=== PATIENT | female | born 1960 | race Caucasian/White ===

== ENCOUNTER → 2017-02-16 | Outpatient (CLI) | payer BC ==
[~2017-02-16] MED LIST: BENICAR PO; CHOL2000 PO; EFFSR150 PO; GLC/500 PO; OMEG10007 PO; PANT40TA PO; RXC5 PO; TIMO0.2534 OPL; VENL75CA PO; VERA240T20 PO
--- NOTE | 2017-02-17 12:47 | MAMMOGRAPHY REPORT ---
BILATERAL DIGITAL SCREENING MAMMOGRAM TOMOSYNTHESIS WITH CAD: 02/16/2017 CLINICAL HISTORY: Routine screening examination. TECHNIQUE: Breast tomosynthesis in addition to standard 2D mammography was performed. Current study was also evaluated with a Computer Aided Detection (CAD) system. COMPARISON: Comparison is made to exams dated: 02/12/2016 mammogram, 12/22/2013 mammogram, 12/25/2010 mammogram, 12/30/2011 mammogram, 12/20/2009 mammogram - [facility], and 09/22/2008. BREAST COMPOSITION: There are scattered areas of fibroglandular density in both breasts. FINDINGS: There are scattered stable benign-appearing microcalcifications throughout the breasts. S table nodularity in the left breast. No new suspicious mass, architectural distortion or cluster of microcalcifications is seen. IMPRESSION: ACR BI-RADS CATEGORY 1: NEGATIVE There is no mammographic evidence of malignancy. A 1 year screening mammogram is recommended. The p atient will receive written notification of the results. Approximately 10% of breast cancers are not detected with mammography. A negative mammographic repor t should not delay biopsy if a clinically suggestive mass is present. Gabrielle Bradshaw M.D. ay/:02/16/2017 16:57:15 Tie Tape Machine Operator: Mattie FISH(My)(M), [facility] letter sent: Normal 1/2 BI-RADS Code: ACR BI-RADS Category 1: Negative
== END | disposition home or self-care (01) ==
LOC: C.MAMM 10:43
PROVIDERS: ATTEND Family Medicine
DX: Z12.31 Encounter for screening mammogram for malignant neoplasm of breast (principal)

== ENCOUNTER → 2017-04-22 | Outpatient (CLI) | payer OTHER | END | disposition home or self-care (01) | LOC: C.LAB 19:57 | DX: Z02.83 Encounter for blood-alcohol and blood-drug test (principal) ==

== ENCOUNTER → 2018-02-18 | Outpatient (CLI) | payer OTHER ==
--- NOTE | 2018-02-18 15:09 | MAMMOGRAPHY REPORT ---
BILATERAL DIGITAL SCREENING MAMMOGRAM TOMOSYNTHESIS WITH CAD: 02/18/2018 CLINICAL HISTORY: Routine screening. Patient has no complaints. TECHNIQUE: Breast tomosynthesis in addition to standard 2D mammography was performed. Current study was also evaluated with a Computer Aided Detection (CAD) system. COMPARISON: Comparison is made to exams dated: 02/16/2017 mammogram, 02/12/2016 mammogram, 12/22/2013 m ammogram, 12/30/2011 mammogram, 12/25/2010 mammogram, and 12/20/2009 mammogram - [facility] enter. BREAST COMPOSITION: There are scattered areas of fibroglandular density in both breasts. FINDINGS: There is a small cluster of calcifications within the left central/6:00 breast, for which s pot magnification views are recommended for further evaluation. The remainder of both breasts are stable compared to prior exams, without suspicious masses, calcific ations, or areas of architectural distortion noted. Other scattered bilateral benign-appearing calci fications are not significantly changed. IMPRESSION: ACR BI-RADS CATEGORY 0: INCOMPLETE EVALUATION: NEED ADDITIONAL IMAGING EVALUATION Left breast calcifications, for which additional imaging evaluation is recommended. The patient will be called to schedule an appointment. Approximately 10% of breast cancers are not detected with mammography. A negative mammographic report should not delay biopsy if a clinically suggestive mass is present. Sarita Sherwood M.D. /:02/18/2018 14:40:31 Tear Down Man: Yoon FISH(My)(Edyta), [facility] letter sent: Addl Imaging 0 BI-RADS Code: ACR BI-RADS Category 0: Incomplete Evaluation: Need Additional Imaging Evaluation
== END | disposition home or self-care (01) ==
LOC: C.MAMM 10:53
PROVIDERS: ATTEND Obstetrics & Gynecology
DX: Z12.31 Encounter for screening mammogram for malignant neoplasm of breast (principal); R92.0 Mammographic microcalcification found on diagnostic imaging of breast

== ENCOUNTER → 2018-03-01 | Outpatient (CLI) | payer OTHER ==
--- NOTE | 2018-03-02 07:48 | MAMMOGRAPHY REPORT ---
UNILATERAL LEFT DIGITAL DIAGNOSTIC MAMMOGRAM: 03/01/2018 CLINICAL HISTORY: 57-year-old woman called back from screening mammography for left breast calcificat ions. TECHNIQUE: Spot magnification left CC and ML views were obtained. COMPARISON: Comparison is made to exams dated: 02/18/2018 mammogram, 02/16/2017 mammogram, 02/12/2016 m ammogram, 12/22/2013 mammogram, 12/30/2011 mammogram, and 12/25/2010 mammogram - [facility] enter. BREAST COMPOSITION: There are scattered areas of fibroglandular density in the left breast. FINDINGS: There is a 5 mm loose grouping of punctate and amorphous microcalcifications with associat ed focal asymmetry in the 6:00 versus lower inner middle one third of the left breast, which in retro spect may have been present in 2017 but not identified on prior mammograms and is therefore indetermi po. Although this could represent fibrocystic change, none of the calcifications demonstrate defin itive layering on the spot magnification ML view to confirm benign milk of calcium. Therefore, defin itive characterization with stereotactic guided biopsy is recommended. IMPRESSION: ACR BI-RADS CATEGORY 4: SUSPICIOUS Left breast stereotactic guided biopsy is recommended for a 5 mm loose grouping of punctate and amorp hous microcalcifications with associated focal asymmetry in the 6:00/lower inner middle one third of the left breast. These results and recommendations were discussed with the patient at the time of the exam. She tenta tively scheduled the left breast stereotactic biopsy prior to leaving our department. Approximately 10% of breast cancers are not detected with mammography. A negative mammographic report should not delay biopsy if a clinically suggestive mass is present. Gabrielle Bradshaw M.D. ay/:03/01/2018 11:22:56 Extrusion Process Operator: Clare FISH(My)(Edyta), [facility] letter sent: Abnormal 4/5 BI-RADS Code: ACR BI-RADS Category 4: Suspicious
== END | disposition home or self-care (01) ==
LOC: C.MAMM 08:35
PROVIDERS: ATTEND Obstetrics & Gynecology
DX: R92.0 Mammographic microcalcification found on diagnostic imaging of breast (principal)

== ENCOUNTER → 2018-03-05 | Outpatient (CLI) | payer OTHER ==
--- NOTE | 2018-03-05 13:14 | Discharge Instructions ---
Discharge Instructions Procedure Procedure Date: Mar 05, 2018. Reason for visit: Left Calcs. Discharge Discharge Date: Mar 05, 2018. Discharge Diagnosis: status post breast biopsy Instructions Activity Recommendations: Additional Limitations (see below) Return to School/Work: no limitations Recommended Home Diet: No Limitations Provider Instructions: ACTIVITY RECOMMENDATIONS: * No lifting, pushing, pulling or exercising the affected side for three days. RETURN TO SCHOOL/WORK: * You may return to work/school after the procedure, but do not perform any strenuous activities for 24 to 48 hours. MEDICATIONS: * Tylenol (two 325 mg) every four to six hours if needed for mild pain (if not allergic to Tylenol). DIET: * Resume previous diet. SPECIAL CARE INSTRUCTIONS: * Keep biopsy site dry for 24 hours. May shower after 24 hours, but do not soak (bathe) incision. * May remove Tegaderm (plastic patch) tomorrow AFTER showering. * Leave the steri-strips on for one week. Allow the steri-strips to fall off by themselves. If not off after one week, you may remove them. You may place a Bandaid crosswise over the strips, if desired. * Apply ice 10 minutes on and 10 minutes off as needed. * Wear a bra at bedtime to sleep more comfortably for 2-3 days. * Your referring physician should have the results after approximately 5 to 7 business days. * Call for unusual bleeding, fever, drainage, etc or if you have any questions call during normal business hours or after hours call Dr Sherwood, . FOLLOW UP VISIT: Follow-up with Referring Physician as scheduled. Allergies Coded Allergies: Cephalexin (Verified Adverse Reaction, Intermediate, YEAST INFECTION, ) Jose Kaba Recommendations: Call your doctor if: * Temperature above 101 degrees * Pain not relieved by pain medicine ordered * There is increased drainage or redness from any incision * You have any unanswered questions or concerns. Your Doctors Instructions noted above were prepared by provider Sarita Sherwood. Patient Signature Section: Patient Instructions Signature Page Vandana Armas Patient (or Guardian) Signature/Date: I have read and understand the instructions given to me by my caregivers. Caregiver/RN/Doctor Signature/Date: The above-named patient and/or guardian has received patient instructions on this date. + Original Patient Signature Page (only) stays with chart. Please make copy for patient.
--- NOTE | 2018-03-05 15:35 | MAMMOGRAPHY REPORT ---
STEREOTACTIC GUIDED BIOPSY LEFT BREAST: 03/05/2018 CLINICAL HISTORY: Indeterminate calcifications in the left breast at approximately 6:00. PATIENT CONSENT: The procedure, risks, benefits, and alternatives of stereotactic biopsy with clip pl acement were discussed with the patient, and verbal and written consent was obtained. A timeout was performed immediately prior to the procedure. PROCEDURE DESCRIPTION: With stereotactic guidance, aseptic technique, and lidocaine as a local anesth etic (1% lidocaine to anesthetize the skin and 1% lidocaine with epinephrine to anesthetize the deepe r tissues), the calcifications of concern in the left breast at approximately 6:00 with an associated asymmetry were sampled multiple times with a 9-gauge vacuum-assisted biopsy needle (Cell[employer]). T he path of approach was caudocranial. The specimen radiograph demonstrates calcifications to be pres ent in the samples. The samples containing calcifications (labeled "A") were from the samp les without calcifications (labeled "B"). A metallic marker clip was placed at the biopsy site. Thi s was confirmed on postprocedure mammograms. Direct pressure was applied at the biopsy site and hemo stasis was readily achieved. The patient tolerated the procedure without complication. She was give n wound care instructions. COMPARISON: Comparison is made to exams dated: 03/01/2018 mammogram, 02/18/2018 mammogram, 02/16/2017 ma mmogram, 02/12/2016 mammogram, 12/22/2013 mammogram, and 12/30/2011 mammogram - [facility] nter. IMPRESSION: STEREOTACTIC GUIDED BIOPSY Stereotactic biopsy of indeterminate calcifications and an associated asymmetry in the left breast at approximately 6:00, with clip placement. The patient will receive pathology results from her referr ing provider. Sarita Sherwood M.D. /:03/05/2018 13:15:43 Attending Technologist: Lola Spangler RT(R)(M), [facility] Vp Transportation: Clare Alfredo RTRosieR)(M), [facility]
--- NOTE | 2018-03-05 15:39 | MAMMOGRAPHY REPORT ---
UNILATERAL LEFT DIGITAL DIAGNOSTIC MAMMOGRAM: 03/05/2018 CLINICAL HISTORY: Status post left breast stereotactic biopsy. TECHNIQUE: Postprocedural left CC and ML views were obtained. COMPARISON: Comparison is made to exams dated: 02/18/2018 mammogram, 02/16/2017 mammogram, 02/12/2016 m ammogram, 12/22/2013 mammogram, 12/30/2011 mammogram, and 03/01/2018 mammogram - [facility]ter. BREAST COMPOSITION: There are scattered areas of fibroglandular density in the left breast. FINDINGS: A new biopsy marker clip is seen within the left 12:00 breast status post stereotactic biop sy of left 6:00 breast calcifications. There is superior migration of the biopsy marker clip from th e biopsy site by approximately 4.7 cm. A residual calcification is seen at the biopsy site. No sign ificant postbiopsy hematoma is seen. IMPRESSION: POST PROCEDURE IMAGING FOR MARKER PLACEMENT New biopsy marker clip status post left breast stereotactic biopsy. There is superior migration of t he biopsy clip as described above. Pathology results are pending. Approximately 10% of breast cancers are not detected with mammography. A negative mammographic report should not delay biopsy if a clinically suggestive mass is present. Sarita Sherwood M.D. ah/:03/05/2018 13:27:11 Attending Technologist: Lola Spangler RT(R)(M), [facility] Transitional Care Manager: Clare Alfredo RT(R)(M), [facility] BI-RADS Code: Post Procedure Imaging For Marker Placement
== END | disposition home or self-care (01) ==
LOC: C.MAMM 12:37
PROVIDERS: ATTEND Obstetrics & Gynecology
DX: D24.2 Benign neoplasm of left breast (principal); R92.0 Mammographic microcalcification found on diagnostic imaging of breast

== ENCOUNTER 2022-12-08 04:29 | Inpatient (IN) ==
[2022-12-08] MEDS ORDERED: SODIUM CHLORIDE 0.9% 500 ML IV ONE ×3 (04:48→05:33)
--- NOTE | 2022-12-08 05:01 | Emergency Department Note ---
Impression & Plan Closed left humeral fracture, Fall, Acute hyponatremia Admit to orthopedics ED Provider Note NAME: IMTIAZ WATSON AGE: 62 SEX: F ARRIVES VIA: Ambulance INFORMANT: Patient ED PROVIDER(S): Nisa Lugo DO CHIEF COMPLAINT: Fall PLAN: Disposition: Admit to orthopedics Condition: Stable MEDICAL DECISION MAKING: This is a 62-year-old female patient who presents to the emergency department with left arm pain. Patient suffered a fall around 2230 last night. She was unable to get up off of the bathroom floor. She rested there overnight believing that the pain would improve but it did not. EMS was called this morning and she was transported here. X-ray shows significantly displaced left proximal humerus fracture. Patient had no other obvious acute traumatic injuri es. She was hyponatremic with mild elevated total CK. She was treated with IV normal saline solution. The patient did have elevation to her alcohol level. She does admit to drinking alcohol last evening prior to the fall. She was kept NPO. I discussed the case with Dr. Marcano who reviewed the x-rays of the shoulder and agreed to admit the patient to the hospital for further care. Patient was neurologically intact in that left upper extremity. She had good pulses and sensation in the wrist/hand. She declined wanting anything for pain. Triage Nursing notes reviewed and agree with them. Vital Signs: reviewed and remarkable for no significant abnormalities Differential diagnosis: Shoulder dislocation, humeral head fracture, elbow injury ER treatment provided: IV normal saline bolus Cardiac monitoring Twelve-lead EKG Diagnostics interpreted by me: ECG: Sinus tachycardia at [address] segment elevation or signs of ischemia. There is no ectopy. Cardiac Monitoring: Sinus tachycardia at 120 Laboratory studies: See below Imaging studies: As per my interpretation Left arm x-ray: Significantly displaced proximal humeral head fracture Chest x-ray: No obvious pulmonary pathology HPI: 62/F arrives for evaluation of left arm pain. The patient slipped on a wet floor in her bathroom around 10:30 PM last evening. She landed on her left arm after striking a cabinet in the bathroom. She did not strike her head or lose consciousness. The patient was unable to get her self up off of the floor for period of time but then asked her to leave her there because of the pain in her left arm. She laid there with a pillow in a blanket throughout the night believing that the pain would go away but it did not. EMS was called this morning. She denies any neck pain or chest pain. PAST MEDICAL HISTORY:See Below PAST SURGICAL HISTORY:See Below FAMILY HISTORY:See Below SOCIAL HISTORY:See Below HOME MEDICATIONS:See list ALLERGIES:None VITALS:See Below PHYSICAL EXAMINATION: HEENT: Head - normocephalic and atraumatic. Pupils are equal, round, and reactive to light. Extraocular eye muscles are intact and sclera are anicteric. Ears - bilaterally patent canals with no evidence of hemotympanum. Nose - moist nasal mucosa without evidence of trauma or discharge. Mouth - moist buccal mucosa with no trauma to the teeth or signs of malocclusion. Neck:The neck is supple and there is no pain to palpation over the posterior cervical spine and no obvious step-offs or deformities. There is no JVD or tracheal deviation. Chest: There are no signs of deformities, contusions or abrasions to the chest wall. There is no obvious crepitus or paradoxical chest rise. Heart: Regular, rate, and rhythm. There is a normal S1 and S2 with no murmurs, clicks, or gallops appreciated. Lungs: Clear to auscultation bilaterally with no wheezes, rales, or rhonchi. Abdomen: Soft, completely nontender, nondistended, with good bowel sounds. There is no sign of trauma such as contusions, abrasions or penetrations. There are no palpable pulsatile masses or hepatosplenomegaly. There is no guarding, rigidity, or rebound noted. Pelvis: Stable to rock and compression. Extremities: Patient has some deformity noted at the left humeral head with ecchymosis in that area. There is moderate tenderness to palpation in that area. There are easily palpable left radial pulse with good capillary refill in the fingers. Other extremities are without evidence of trauma. Neuro: The patient is awake and alert and easily able to follow commands. Otherwise, neuro exam is unremarkable. ED COURSE: Times/Reassessments: 430 the patient was evaluated in room A2. A complete hi story and physical was performed. An IV lock was initiated and labs were drawn as above. A twelve-lead EKG was obtained as described above. An order was placed for continuous cardiac monitoring. Patient was in a sinus tachycardia at a rate of 120. Patient was bolused with normal saline. The patient had plain films of her left shoulder and chest. I reviewed the results with the patient and her . I discussed the case with orthopedics. Nisa Lugo DO Past Med/Surg History Medical History Abnormal menses Anxiety C2 cervical fracture Cervical spinal cord compression Concussion GERD (gastroesophageal reflux disease) Hypertension Increased pressure in the eye Pre-diabetes Scar condition and fibrosis of skin Surgical History History of colonoscopy History of fusion of cervical spine Family History (Updated 08/01/22 @ 11:23 by Gladys Sandoval LPN) Father Atrial fibrillation Prostate cancer Mother Diabetes Pancreatic cancer Melanoma Brother Melanoma Denies family history of Ovarian cancer Myocardial infarction Breast cancer Colorectal cancer Social History (Updated 08/01/22 @ 11:23 by Gladys Sandoval LPN) Smoking Status: Never smoker Second Hand Exposure: Yes (DAILY BASIS); Hx Alcohol Use: Yes Alcohol type: beer Hx Substance Use: No Preferred Language: Yoruba Communication Ability: Effective Beliefs That Will Affect Care: None Current Living Situation: Spouse Feels Safe at Home: Yes Allergies Allergies Allergy/AdvReac Type Severity Reaction Status Date / Time No Known Allergies Allergy Verified 08/01/22 11:18 Home Meds Home Medications Medication Instructions Recorded Confirmed metformin 500 mg tablet 500 mg PO BID 09/04/19 08/01/22 [id number] oil-vit D3 300 2 cap PO QAM 09/04/19 08/01/22 mg-1,000 mg-1,000 unit capsule (Fish Oil-Vit D3) timolol maleate 0.25 % eye drops 1 drp OPB HS 09/04/19 08/01/22 venlafaxine 150 mg 150 mg PO QAM 09/04/19 08/01/22 capsule,extended release 24 hr venlafaxine 75 mg capsule,extended 75 mg PO QAM 09/04/19 08/01/22 release 24 hr zolpidem 5 mg tablet 5 mg PO HS PRN Sleep 09/04/19 08/01/22 amlodipine PO 05/30/21 08/01/22 losartan PO 05/30/21 08/01/22 rosuvastatin [Crestor] PO 08/01/22 08/01/22 Previous Rx's Medication Instructions Recorded nystatin-triamcinolone 100,000 1 applic topical BID #30 grams 08/01/22 unit/g-0.1 % topical cream Results & Data (ED) Vital Signs Vital Signs - 24 hr 12/08/22 04:21 12/08/22 05:00 12/08/22 05:22 Temperature 36.7 C Temperature Source Oral Pulse Rate 120 H 114 H 106 H Respiratory Rate 20 14 Respiratory Effort / Characteristics Non-Labored Spontaneous Respiratory Depth Normal Blood Pressure 162/114 H 153/107 H Blood Pressure Mean 130 122 Pulse Oximetry 98 96 Oxygen Delivery Method Room Air Room Air Sepsis Recent Fever Within 48 Hours No Sepsis New/Unexplained Change in Mental Status No Sepsis Action Taken by Nursing No Action Required 12/08/22 06:09 Temperature Temperature Source Pulse Rate 105 H Respiratory Rate 16 Respiratory Effort / Characteristics Respiratory Depth Blood Pressure 142/97 H Blood Pressure Mean 112 Pulse Oximetry 95 Oxygen Delivery Method Room Air Sepsis Recent Fever Within 48 Hours Sepsis New/Unexplained Change in Mental Status Sepsis Action Taken by Nursing Laboratory Data 12/08/22 04:54 12/08/22 04:54 Lab Results 12/08/22 12/08/22 12/08/22 Range/Units 04:54 04:54 04:54 WBC 14.15 H (4.8-10.8) K/ul RBC 4.34 (3.93-5.22) M/uL Hgb 13.8 (12.0-16.0) g/dl Hct 39.1 (34.1-44.9) % MCV 90.1 (80.0-100.0) fL MCH 31.8 (25.0-34.0) pg MCHC 35.3 (32.0-36.0) g/dL RDW Std Deviation 39.9 (36.4-46.3) fL RDW Coeff of Dimitri 12.1 (11.5-14.5) % Plt Count 277 (130-400) K/uL MPV 8.8 L (9.4-12.3) fL Immature Gran % (Auto) 0.4 % Neut % (Auto) 83.7 % Lymph % (Auto) 11.9 % Morris % (Auto) 3.7 % Eos % (Auto) 0.1 % Baso % (Auto) 0.2 % Neut # (Auto) 11.84 H (1.4-6.5) K/uL Lymph # (Auto) 1.69 (1.2-3.4) K/uL Morris # (Auto) 0.53 (0.24-0.82) K/uL Eos # (Auto) 0.01 (0-0.50) K/uL Baso # (Auto) 0.03 (0-0.2) K/uL Immature Gran # (Auto) 0.05 H (0.00-0.02) K/uL Sodium 126 L (136-145) mmol/L Potassium 4.0 (3.5-5.1) mmol/L Chloride 92 L (98-107) mmol/L Carbon Dioxide 22 (21-32) mmol/L Anion Gap 12 H (3-11) BUN 10 (6-23) mg/dl Creatinine 0.57 L (0.6-1.2) mg/dl Est Cr Clr Drug Dosing 112.2 ml/min Est GFR ( Amer) 116.0 ml/min Est GFR (Non-Af Amer) 100.1 ml/min BUN/Creatinine Ratio 17.5 (10-20) Glucose 122 H (70-99(Fasting)) mg/dl Calcium 8.9 (8.5-10.1) mg/dl Total Bilirubin 0.5 (0.2-1.0) mg/dl AST 31 (13-39) U/L ALT 30 (7-52) U/L Alkaline Phosphatase 80 (34-104) U/L Total Creatine Kinase 382 H (26-192) U/L Total Protein 8.3 (6.0-8.3) gm/dl Albumin 4.5 (3.4-5.0) gm/dl Globulin 3.8 (2.5-4.0) gm/dl Albumin/Globulin Ratio 1.2 (0.9-2) Ethyl Alcohol mg/dL 85.2 H (<10.0) mg/dl SARS-CoV-2, RNA, NAAT (NEGATIVE) 12/08/22 Range/Units Unknown WBC (4.8-10.8) K/ul RBC (3.93-5.22) M/uL Hgb (12.0-16.0) g/dl Hct (34.1-44.9) % MCV (80.0-100.0) fL MCH (25.0-34.0) pg MCHC (32.0-36.0) g/dL RDW Std Deviation (36.4-46.3) fL RDW Coeff of Dimitri (11.5-14.5) % Plt Count (130-400) K/uL MPV (9.4-12.3) fL Immature Gran % (Auto) % Neut % (Auto) % Lymph % (Auto) % Morris % (Auto) % Eos % (Auto) % Baso % (Auto) % Neut # (Auto) (1.4-6.5) K/uL Lymph # (Auto) (1.2-3.4) K/uL Morris # (Auto) (0.24-0.82) K/uL Eos # (Auto) (0-0.50) K/uL Baso # (Auto) (0-0.2) K/uL Immature Gran # (Auto) (0.00-0.02) K/uL Sodium (136-145) mmol/L Potassium (3.5-5.1) mmol/L Chloride (98-107) mmol/L Carbon Dioxide (21-32) mmol/L Anion Gap (3-11) BUN (6-23) mg/dl Creatinine (0.6-1.2) mg/dl Est Cr Clr Drug Dosing ml/min Est GFR ( Amer) ml/min Est GFR (Non-Af Amer) ml/min BUN/Creatinine Ratio (10-20) Glucose (70-99(Fasting)) mg/dl Calcium (8.5-10.1) mg/dl Total Bilirubin (0.2-1.0) mg/dl AST (13-39) U/L ALT (7-52) U/L Alkaline Phosphatase (34-104) U/L Total Creatine Kinase (26-192) U/L Total Protein (6.0-8.3) gm/dl Albumin (3.4-5.0) gm/dl Globulin (2.5-4.0) gm/dl Albumin/Globulin Ratio (0.9-2) Ethyl Alcohol mg/dL (<10.0) mg/dl SARS-CoV-2, RNA, NAAT NEGATIVE (NEGATIVE) Administered Medications Oxycodone HCl (Oxycodone Hcl Ir 5 Mg Tab (Immediate Release)) 5 - 10 mg PO Q4 PRN PRN Reason: Pain Stop: 12/22/22 05:36 Last Admin: 12/08/22 06:28 Dose: 10 mg Documented By: LUIS ALBERTO Discontinued Medications Sodium Chloride (Nss) 500 mls @ 999 mls/hr IV .Q31M ONE Stop: 12/08/22 05:18 Last Infusion: 12/08/22 05:26 Dose: 0 mls/hr Documented By: LUIS ALBERTO Admin: 12/08/22 04:53 Dose: 999 mls/hr Documented By: LUIS ALBERTO Sodium Chloride (Nss) 500 mls @ 999 mls/hr IV .Q31M ONE Stop: 12/08/22 06:03 Last Infusion: 12/08/22 06:15 Dose: 0 mls/hr Documented By: LUIS ALBERTO Admin: 12/08/22 05:40 Dose: 999 mls/hr Documented By: LUIS ALBERTO Sodium Chloride (Nss) 500 mls @ 999 mls/hr IV .Q31M ONE Stop: 12/08/22 06:03 Last Admin: 12/08/22 05:40 Dose: Not Given Documented By: LUIS ALBERTO Discharge Plan Visit Data Chief Complaint: Fall Stated Complaint: G.L. FALL w/ lt SHOULDER & ARM PAIN ED Provider: Nisa Lugo Discharge Problem: Closed left humeral fracture, Fall, Acute hyponatremia Forms Stand Alone Forms: [facility] Prescriptions Prescriptions: No Action losartan PO amlodipine PO rosuvastatin [Crestor] PO nystatin-triamcinolone 100,000-0.1 unit/g-% cream 1 applic topical BID Qty: 30 4RF metformin 500 mg tablet 500 mg PO BID venlafaxine 75 mg capsule,extended release 24hr 75 mg PO QAM Rx Instructions: TAKE ONE 75 MG CAPSULE ALONG WITH ONE 150 MG CAPSULE TO EQUAL 225 MG DAILY DOSE venlafaxine 150 mg capsule,extended release 24hr 150 mg PO QAM Rx Instructions: TAKE ONE 150 MG CAPSULE ALONG WITH ONE 75 MG CAPSULE TO EQUAL 225 MG DAILY DOSE timolol maleate 0.25 % drops 1 drp OPB HS zolpidem 5 mg tablet 5 mg PO HS PRN (Reason: Sleep) [id number]-fish oil-vit D3 [Fish Oil-Vit D3] 300-1,000-1,000 mg-mg-unit Capsule 2 cap PO QAM Referrals Referrals: Eros Kan [Primary Care Provider] - : Closed left humeral fracture Qualifiers: Encounter type: initial encounter Humerus Location: proximal Fracture morphology: other fracture Fracture alignment: displaced Qualified Code(s): S42.292A - Other displaced fracture of upper end of left humerus, initial encounter for closed fracture Fall Qualifiers: Encounter type: initial encounter Qualified Code(s): W19.XXXA - Unspecified fall, initial encounter
[2022-12-08 05:03] LABS: Basophils # (auto) 0.03 K/uL (0-0.2); Basophils % (auto) 0.2 %; Eosinophils # (auto) 0.01 K/uL (0-0.50); Eosinophils % (auto) 0.1 %; Hematocrit (blood only) 39.1 % (34.1-44.9); Hemoglobin 13.8 g/dl (12.0-16.0); Immature Granulocytes # (auto) 0.05 K/uL (0.00-0.02); Immature Granulocytes % (auto) 0.4 %; Lymphocytes # (auto) 1.69 K/uL (1.2-3.4); Lymphocytes % (auto) 11.9 %; Mean Corpuscular Hemoglobin 31.8 pg (25.0-34.0); Mean Corpuscular Hgb Conc 35.3 g/dL (32.0-36.0); Mean Corpuscular Volume 90.1 fL (80.0-100.0); Mean Platelet Volume 8.8 fL (9.4-12.3); Monocytes # (auto) 0.53 K/uL (0.24-0.82); Monocytes % (auto) 3.7 %; Neutrophils # (auto) 11.84 K/uL (1.4-6.5); Neutrophils % (auto) 83.7 %; Platelet Count 277 K/uL (130-400); RDW Coefficient of Variation 12.1 % (11.5-14.5); RDW Standard Deviation 39.9 fL (36.4-46.3); Red Blood Count 4.34 M/uL (3.93-5.22); White Blood Count 14.15 K/ul (4.8-10.8)
[2022-12-08 05:30] LABS: Albumin Globulin Ratio 1.2 (0.9-2); Albumin Level 4.5 gm/dl (3.4-5.0); BUN Creatinine Ratio 17.5 (10-20); Bilirubin,Total 0.5 mg/dl (0.2-1.0); Calcium 8.9 mg/dl (8.5-10.1); Creatinine Clr Calc Pharmacy 112.2 ml/min; Est GFR (Non-African American) 100.1 ml/min; Globulin 3.8 gm/dl (2.5-4.0); Total Protein 8.3 gm/dl (6.0-8.3)
[2022-12-08] MEDS ORDERED: ONDANSETRON INJ 2 MG/ML 2 ML VIAL IV PRN ×3 (05:32→21:40)
[2022-12-08] MEDS ORDERED: ceFAZolin 2000MG 2,000 MG/15 ML SYR IV SCH (06:00)
[2022-12-08] MEDS: oxyCODONE HCL IR 5 MG TAB (IMMEDIATE RELEASE) PO PRN ×2 (06:28→12:20)
--- NOTE | 2022-12-08 07:12 | CT Scan Report ---
LEFT SHOULDER CT WITHOUT CONTRAST CLINICAL HISTORY: Left proximal humerus fx, preop planning COMPARISON STUDY: Left humerus radiographs December 08, 2022. TECHNIQUE: Axial images of the left shoulder were obtained without IV contrast. Sagittal and coronal reconstructions were viewed. Automated exposure control was utilized for the study. A dose lowering technique was utilized adhering to the principles of ALARA. FINDINGS: There is an acute markedly displaced and moderately comminuted left humeral neck fracture w hich extends into the humeral head. Alignment of the glenohumeral joint remains anatomic. Remaining p ortion of the left humerus is displaced inferiorly and medially by 3.4 cm. Fragments are noted. Adjac ent hemorrhage is present. No additional fractures are present. Alignment of the left acromioclavicul ar joint is anatomic. C4-C7 anterior discectomy and fusion is noted. Mild loss of height of the T2 an d T3 vertebral bodies is likely chronic. There are old left-sided rib fractures. IMPRESSION: Acute markedly displaced and moderately comminuted left humeral neck fracture which exte nds into the humeral head. Significant adjacent hemorrhage. No dislocation. ACT 112: Negative or not required by law. Electronically signed by: Acosta Bermudez M.D. 12/08/2022 7:10 AM
--- NOTE | 2022-12-08 07:13 | XRay Report ---
XR chest 1V portable CLINICAL HISTORY: fall COMPARISON STUDY: Chest radiograph July 05, 2014. FINDINGS: Postoperative findings within the lower cervical spine are incidentally noted. There is an acute comminuted displaced left humeral neck fracture. Lung volumes are normal. Lungs are clear. Ther e is no pneumothorax or pleural effusion. Cardiac size is normal. Mediastinal contours are normal. Th ere is no evidence for pulmonary edema. Left lower chest is slightly obscured by overlying hand. IMPRESSION: 1. No acute cardiopulmonary findings. 2. Acute comminuted displaced left humeral neck fracture. ACT 112: Negative or not required by law. Electronically signed by: Acosta Bermudez M.D. 12/08/2022 7:11 AM
--- NOTE | 2022-12-08 07:14 | XRay Report ---
XR humerus LT 2V CLINICAL HISTORY: Fall. COMPARISON: None FINDINGS: There is an acute markedly displaced and mildly comminuted left humeral neck fracture whic h extends into the humeral head. Fracture is displaced 3.3 cm. The humeral shaft is displaced inferio rly from the neck. Alignment of the left glenohumeral joint remains anatomic. There is no distal left humeral fracture. IMPRESSION: Acute markedly displaced and mildly comminuted left humeral neck fracture. ACT 112: Negative or not required by law. Electronically signed by: Acosta Bermudez M.D. 12/08/2022 7:12 AM
--- NOTE | 2022-12-08 09:11 | Anesthesiology Consultation ---
Date of Service December 08, 2022 Assessment & Plan (1) Encounter for pre-operative examination: Chart Review Chart Review: Pending: Refer to Additional Notes / Consult section and Patient NOT seen in Pre Admission Testing Sodium level 126 this AM at 04:54. Should recheck prior to OR. May consider also rechecking alcohol level as patient's was elevated at 85.2 upon admission. Consults Requested none History Surgery Operation Date: 12/08/22 11:00 Proposed Procedures p Left Proximal Humerus Fracture Open Reduction Internal Fixation - Lobito Marcano M.D. Height/Weight Height: 5 ft 4 in Weight: 89.4 kg Allergies Allergy/AdvReac Type Severity Reaction Status Date / Time No Known Allergies Allergy Verified 08/01/22 11:18 Medications Home Medications Medication Instructions Recorded Confirmed Last Taken metformin 500 mg tablet 500 mg PO BID 09/04/19 08/01/22 11/11/19 tr-4-kpp-epa-fish oil-vit D3 300 2 cap PO QAM 09/04/19 08/01/22 11/10/19 mg-1,000 mg-1,000 unit capsule (Fish Oil-Vit D3) timolol maleate 0.25 % eye drops 1 drp OPB HS 09/04/19 08/01/22 11/14/19 venlafaxine 150 mg 150 mg PO QAM 09/04/19 08/01/22 11/14/19 capsule,extended release 24 hr venlafaxine 75 mg capsule,extended 75 mg PO QAM 09/04/19 08/01/22 11/14/19 release 24 hr zolpidem 5 mg tablet 5 mg PO HS PRN Sleep 09/04/19 08/01/22 11/14/19 21:30 amlodipine PO 05/30/21 08/01/22 Unknown losartan PO 05/30/21 08/01/22 Unknown nystatin-triamcinolone 100,000 1 applic topical BID #30 grams 08/01/22 08/01/22 Unknown unit/g-0.1 % topical cream rosuvastatin [Crestor] PO 08/01/22 08/01/22 Unknown Active Medications Generic Name Dose Route Start Last Admin Trade Name Freq PRN Reason Stop Dose Admin Oxycodone HCl 5 - 10 mg 12/08/22 05:37 12/08/22 06:28 Oxycodone Hcl Ir 5 Mg Tab (Immediate Release) PO 12/22/22 05:36 10 mg Q4 PRN Administration Pain Past Medical History Medical History (Updated 12/08/22 @ 09:09 by Alvin Baugh MD) Abnormal menses Acute hyponatremia Anxiety C2 cervical fracture nonoperative management by Dr. Merrill; healed Cervical spinal cord compression Closed left humeral fracture Concussion GERD (gastroesophageal reflux disease) Hypertension Increased pressure in the eye Pre-diabetes Scar condition and fibrosis of skin s/p revision of forehead/scalp laceration 11/15/19 due to fall Past Family History Family History Father Atrial fibrillation Prostate cancer Mother Diabetes Pancreatic cancer Melanoma Brother Melanoma Denies family history of Ovarian cancer Myocardial infarction Breast cancer Colorectal cancer Past Surgical History Surgical History History of colonoscopy History of fusion of cervical spine central forehead scar revision 11/15/2019: LMA #4. Social History Smoking Status: Never smoker Hx Alcohol Use: Yes Alcohol type: beer alcohol intake frequency: a few times a week Hx Substance Use: No Physical Exam Vital Signs Last Vital Signs Temp 36.7 C 12/08/22 04:21 Pulse 113 H 12/08/22 07:00 Resp 15 12/08/22 07:00 BP 116/81 12/08/22 07:00 Pulse Ox 92 12/08/22 07:00 O2 Del Method 12/08/22 07:00 Testing Laboratory Results 12/08/22 04:54 12/08/22 04:54 Electrocardiogram Date: 12/08/22 Findings: + ST @ (109) ST 109 Poor data quality, interpretation may be adversely affected Sinus tachycardia Possible Left atrial enlargement Inferior infarct , age undetermined Cannot rule out Anterior infarct , age undetermined Abnormal ECG When compared with ECG of 07-NOV-2019 10:28, Minimal criteria for Anterior infarct are now Present Inferior infarct is now Present Nonspecific T wave abnormality now evident in Lateral leads Chest X-Ray Date: 12/08/22 XR chest 1V portable CLINICAL HISTORY: fall COMPARISON STUDY: Chest radiograph July 05, 2014. FINDINGS: Postoperative findings within the lower cervical spine are incidentally noted. There is an acute comminuted displaced left humeral neck fra cture. Lung volumes are normal. Lungs are clear. There is no pneumothorax or pleural effusion. Cardiac size is normal. Mediastinal contours are normal. There is no evidence for pulmonary edema. Left lower chest is slightly obscured by overlying hand. IMPRESSION: 1. No acute cardiopulmonary findings. 2. Acute comminuted displaced left humeral neck fracture.
[2022-12-08] MEDS: IBUPROFEN 600 MG TAB PO SCH ×3 (09:58→22:17)
--- NOTE | 2022-12-08 10:18 | Hospitalist Consultation ---
Date of Consultation December 08, 2022 Assessment & Plan (1) Fall: -Patient is currently afebrile, hemodynamically stable, and stable on RA -Patient sustained a mechanical fall in her bathroom last night, fell on her left arm and sustained a displaced left proximal humerus fracture -No other acute trauma noted on exam -Pain control, perioperative antibiotics, and DVT PPX per the primary team -Would hold additional IV fluids until her repeat labs ordered at the time of the consult result (2) Acute hyponatremia: -Initial sodium noted to be 126, only other sodium was back in 2019 which was 134 -Per the history of frequent beer consumption and patient appearing euvolemic- dry on exam the cause of her acute hyponatremia is likely due to beer-drinker's potomania -Patient is not on a diuretic -S/P 1L NSS bolus in the ED this am -Ordered STAT repeat CMP, CK, and alcohol level, will follow-up -If sodium is stable on repeat labs then she is considered stable for surgery from a medicine perspective; would need to confirm with anesthesia that they would consider her stable as well -Repeat CMP ordered for 4pm to monitor her electrolytes post-op, will follow up and address any further electrolyte abnormalities if noted -If her sodium drops on pending CMP will investigate further (3) Closed left humeral fracture: -See fall (4) Acute alcohol intoxication: -Initial alcohol level this am noted to be 85 -Patient reports drinking approximately 4-5 beers 3-5 times weekly, unsure how much she had last night -Will monitor her repeat alcohol level, will need to confirm with anesthesiology when they would be comfortable taking her to the OR based on the repeat level -Monitor patient for signs of alcohol withdrawal post-op and while admitted, would start AWSS protocol for any concerns of alcohol withdrawal (5) GERD (gastroesophageal reflux disease): -Will start 40 mg IV Protonix daily while admitted for stress ulcer prophylaxis (6) Hypertension: -Hemodynamically stable -Would hold her Losartan until tomorrow night to ensure she is hemodynamically stable and renal function remains stable -Can continue HS amlodipine tonight if she is hemodynamically stable post-op (7) Pre-diabetes: -Hold metformin -BSG goal range of 110-140 -Will order initial glycemic control orders and will place pharmacy glycemic control consult to ensure she is adequately followed and managed -Monitor and treat BSG q6h while she is NPO -Will start with 5 units Lantus BID, correction factor of 50 with carb ration of 16 -AM A1c ordered (8) Anxiety: -Continue venlafaxine Plan The patient was discussed with Dr. Zuñiga at the time of the consult Supervising Physician Co-Signing Physician Notes I personally saw and examined the patient. I verified all molnia points and agree with Hawk Yousif PA-C with the following exceptions and/or additions: 62 year old female presents to ER after a fall. No specific concerns regarding with fall as in the setting of alcohol intoxication. Patient admitted earlier by orthopedics due to an acute mildly displaced and moderate comminuted left humeral neck fracture. Medicine consulted for electrolyte abnormalities. O/E HS1+2, no murmurs, Chest CTAB, Abdo SNT, neurovascularly intact distal to fracture with good radial pulse and full sensation in fingers, 5/5 operations asst strength A/P Preoperative assessment - CXR - no acute cardiopulmonary findings, EKG -sinus tachycardia 109 bpm, when compared to EKG from November 07, 2019 minimal criteria for anterior infarct is now present, inferior infarct now present, nonspecific T wave abnormalities now evident in lateral leads however this is on a background of poor EKG quality. She denies any acute chest pain or shortness of breath consistent with acute coronary syndrome. Suspect changes are rate related. She denies any history of stroke or heart attack. She reports being able to walk 1 mile without shortness of breath or chest pains. Revised cardiac risk index 0, 3.9% 30-day risk of , [place] or cardiac arrest. No further preoperative testing recommended. Alcohol level now normal which is consistent with rate of alcohol metabolism from her previous raise test. She is medically stable for surgery at this time. Agree with stress ulcer prophylaxis given history of GERD and ibuprofen for pain control. Acute hyponatremia - patient reports this has been low on occasion in the past with her primary care physician. No specific diagnosis but on repeat testing has returned to normal spontaneously. Suspect degree of beer potomania and tea and toast diet. Improving with intravenous normal saline 1 L given in the emergency room. Continue normal saline at 125 mL/h. Repeat level postoperatively and in the morning. No need for further work-up as long as this continues to improve. Fall - no specific concerns regarding full as appears to be mechanical in nature in the setting of alcohol intoxication. Prediabetes -no need for carb ratio or Lantus. These were discontinued. HTN - continue amlodipine with hold parameters sBP <120, hold losartan until POD #1 with hold parameters sBP < 100. Thank you for the consult we will repeat sodium later today postoperatively and in the morning. We will continue to follow along with you. History of Present Illness Reason for Consultation: Electrolyte abnormalities Requesting Physician: Lobito Marcano Attending Physician: Saeed Zuñiga History of Present Illness Vandana is a 62 year old female with a PMH significant for HTN, prediabetes, dyslipidemia, and anxiety who initially presented to the [facility] ED on 12/08/22 with a chief complaint of mechanical fall at home. Per the ED documentation, the patient reportedly had a mechanical fall at home in her bathroom at approximately 2230 last night. She experienced significant left arm pain after her fall and was unable to get herself up, she was on the ground overnight. She called EMS this am as she could not get herself up. In the ED the patient was found to be afebrile, hemodynamically stable, stable on RA and tachycardic in the 110's. Initial labs were significant for a leukocytosis of 14, left shift of 11, stable Hgb and platelets, stable Cr at 0.57, sodium of 126, glucose of 122, AG of 12 with bicarb of 22, chloride of 92, total Ck of 382, alcohol level of 85, and covid negative. Chest xray was read as "1. No acute cardiopulmonary findings. 2. Acute comminuted displaced left humeral neck fracture.". Xray of the left humerus was read as "Acute markedly displaced and mildly comminuted left humeral neck fracture.". CT of the left shoulder WO IV contrast was read as "Acute markedly displaced and moderately comminuted left humeral neck fracture which extends into the humeral head. Significant adjacent hemorrhage. No dislocation.". The patient was initially given 1 L NSS. She was initially planned to be taken to the OR for open reduction and internal fixation with Dr. Marcano, we were consulted to ensure the patient is medically stable prior to being taken to the OR. At the time of the exam the patient was resting comfortably in bed in no acute distress. She states that she sustained the mechanical fall last night when she went to go to the bathroom. She states that her feet were wet and the f saray was "slick", causing her to fall. She denies hitting her head, losing consciousness, and being on blood thinners. When asked, she states that she drinks 4-5 beers approximately 3-5 nights a week; she is unsure how much she had to drink last night before her fall. She currently denies fever, chills, headache, changes in vision, hearing, taste, and smell, paresthesias, chest pain, SOB, abdominal pain, nausea, vomiting, dysuria, hematuria, and lower extremity swelling. Please refer to Dr. Zuñiga's attestation for any changes to the treatment plan. Allergies Allergy/AdvReac Type Severity Reaction Status Date / Time No Known Allergies Allergy Verified 08/01/22 11:18 Home Medications Medication Instructions Recorded Confirmed Type metformin 500 mg tablet 500 mg PO BID 09/04/19 12/08/22 History th-9-bvk-epa-fish oil-vit D3 300 2 cap PO QAM 09/04/19 12/08/22 History mg-1,000 mg-1,000 unit capsule (Fish Oil-Vit D3) timolol maleate 0.25 % eye drops 1 drp OPB HS 09/04/19 12/08/22 History venlafaxine 150 mg 150 mg PO QAM 09/04/19 12/08/22 History capsule,extended release 24 hr venlafaxine 75 mg capsule,extended 75 mg PO QAM 09/04/19 12/08/22 History release 24 hr zolpidem 5 mg tablet 5 mg PO HS PRN Sleep 09/04/19 12/08/22 History amlodipine 5 mg PO HS 05/30/21 12/08/22 History losartan 25 mg PO HS 05/30/21 12/08/22 History nystatin-triamcinolone 100,000 1 applic topical BID #30 grams 08/01/22 12/08/22 Rx unit/g-0.1 % topical cream rosuvastatin [Crestor] 10 mg PO HS 08/01/22 12/08/22 History Patient History Medical History (Updated 12/08/22 @ 11:01 by Hawk Yousif PA-C) Abnormal menses Acute hyponatremia Anxiety C2 cervical fracture nonoperative management by Dr. Merrill; healed Cervical spinal cord compression Closed left humeral fracture Concussion GERD (gastroesophageal reflux disease) Hypertension Increased pressure in the eye Pre-diabetes Scar condition and fibrosis of skin s/p revision of forehead/scalp laceration 11/15/19 due to fall Surgical History History of colonoscopy History of fusion of cervical spine Family History Father Atrial fibrillation Prostate cancer Mother Diabetes Pancreatic cancer Melanoma Brother Melanoma Denies family history of Ovarian cancer Myocardial infarction Breast cancer Colorectal cancer Social History (Updated 08/01/22 @ 11:23 by Gladys Sandoval LPN) Smoking Status: Never smoker Second Hand Exposure: Yes (DAILY BASIS); Hx Alcohol Use: Yes Alcohol type: beer Hx Substance Use: No Preferred Language: Sudanese Communication Ability: Effective Beliefs That Will Affect Care: None Current Living Situation: Spouse Feels Safe at Home: Yes Review of Systems Review of Systems: Denies current fever, chills, headache, changes in vision, hearing, taste, and smell, chest pain, SOB, cough, abdominal pain, nausea, vomiting, diarrhea, hematemesis, melena, dysuria, hematuria All systems have been reviewed and are otherwise negative. Physical Exam Physical Exam: Physical Exam: General: In no acute distress, stated age, well-nourished, non-toxic appearing HEENT: Normocephalic, atraumatic, no scleral icterus, pupils around round, symmetrical, and reactive to light, dry mucus membranes, trachea midline, no thyromegaly Chest/Pulm: No respiratory distress, symmetrical chest expansion, clear breath sounds throughout Cardiac: RRR, no murmurs noted Abdomen: Negative for ascites and bruising, normoactive bowel sounds, soft, non-tender to palpation throughout Musculoskeletal: patient with LUE currently in a sling and with bruising noted in the proximal arm, patient with intact motor function, sensation, and pulse in the left hand/fingers, no other acute trauma noted on exam Extremities: Radial, dorsalis pedis, and posterior tibial pulses are intact and symmetrical, no edema noted in the BL LE's Skin: Warm, dry, no rashes , lesions, or scars noted Neuro: Alert and oriented to person, place, month, year, and president, no focal defects, CN II-XII tested and intact, no tremors noted Psych: No acute distress, calm and cooperative during the exam Results & Data Results & Data ([facility]) Vital Signs (Past 12 Hours) Vital Signs Temp Pulse Pulse Resp BP BP Pulse Ox 12/08/22 08:05 36.7 C 105 H 18 136/84 92 12/08/22 07:00 113 H 15 116/81 92 12/08/22 06:30 115 H 20 95 12/08/22 06:09 105 H 16 142/97 H 95 12/08/22 05:22 106 H 96 12/08/22 05:00 114 H 14 153/107 H 12/08/22 04:21 36.7 C 120 H 20 162/114 H 98 O2 Del Method 12/08/22 08:05 Room Air 12/08/22 07:00 Room Air 12/08/22 06:30 12/08/22 06:09 Room Air 12/08/22 05:22 Room Air 12/08/22 05:00 12/08/22 04:21 Room Air Laboratory Results Abnormal lab results 12/08/22 12/08/22 12/08/22 Range/Units 04:54 04:54 04:54 WBC 14.15 H (4.8-10.8) K/ul MPV 8.8 L (9.4-12.3) fL Neut # (Auto) 11.84 H (1.4-6.5) K/uL Immature Gran # (Auto) 0.05 H (0.00-0.02) K/uL Sodium 126 L (136-145) mmol/L Chloride 92 L (98-107) mmol/L Anion Gap 12 H (3-11) Creatinine 0.57 L (0.6-1.2) mg/dl Glucose 122 H (70-99(Fasting)) mg/dl Total Creatine Kinase 382 H (26-192) U/L Ethyl Alcohol mg/dL 85.2 H (<10.0) mg/dl Diagnostic Findings Chest X-Ray 12/08/22 04:48 XR chest 1V portable CLINICAL HISTORY: fall COMPARISON STUDY: Chest radiograph July 05, 2014. FINDINGS: Postoperative findings within the lower cervical spine are incidentally noted. There is an acute comminuted displaced left humeral neck fracture. Lung volumes are normal. Lungs are clear. There is no pneumothorax or pleural effusion. Cardiac size is normal. Mediastinal contours are normal. There is no evidence for pulmonary edema. Left lower chest is slightly obscured by overlying hand. IMPRESSION: 1. No acute cardiopulmonary findings. 2. Acute comminuted displaced left humeral neck fracture. ACT 112: Negative or not required by law. Electronically signed by: Acosta Bermudez M.D. 12/08/2022 7:11 AM Humerus X-Ray 12/08/22 04:48 XR humerus LT 2V CLINICAL HISTORY: Fall. COMPARISON: None FINDINGS: There is an acute markedly displaced and mildly comminuted left humeral neck fracture which extends into the humeral head. Fracture is displaced 3.3 cm. The humeral shaft is displaced inferiorly from the neck. Alignment of the left glenohumeral joint remains anatomic. There is no distal left humeral fracture. IMPRESSION: Acute markedly displaced and mildly comminuted left humeral neck fracture. ACT 112: Negative or not required by law. Electronically signed by: Acosta Bermudez M.D. 12/08/2022 7:[address] 12/08/22 05:[address] WITHOUT CONTRAST CLINICAL HISTORY: Left proximal humerus fx, preop planning COMPARISON STUDY: Left humerus radiographs December 08, 2022. TECHNIQUE: Axial images of the left shoulder were obtained without IV contrast. Sagittal and coronal reconstructions were viewed. Automated exposure control was utilized for the study. A dose lowering technique was utilized adhering to the principles of ALARA. FINDINGS: There is an acute markedly displaced and moderately comminuted left humeral neck fracture which extends into the humeral head. Alignment of the glenohumeral joint remains anatomic. Remaining portion of the left humerus is displaced inferiorly and medially by 3.4 cm. Fragments are noted. Adjacent hemorrhage is present. No additional fractures are present. Alignment of the left acromioclavicular joint is anatomic. C4-C7 anterior discectomy and fusion is noted. Mild loss of height of the T2 and T3 vertebral bodies is likely chronic. There are old left-sided rib fractures. IMPRESSION: Acute markedly displaced and moderately comminuted left humeral neck fracture which extends into the humeral head. Significant adjacent hemorrhage. No dislocation. ACT 112: Negative or not required by law. Electronically signed by: Acosta Bermudez M.D. 12/08/2022 7:10 AM ECG Additional Comments: Poor data quality, interpretation may be adversely affected Sinus tachycardia Possible Left atrial enlargement Inferior infarct , age undetermined Cannot rule out Anterior infarct , age undetermined Abnormal ECG When compared with ECG of 07-NOV-2019 10:28, Minimal criteria for Anterior infarct are now Present Inferior infarct is now Present Nonspecific T wave abnormality now evident in Lateral leads PG Care Time/CCT Total # of Minutes Spent Total Time Spent with Patient: Total time spent is greater than 50% in coordination of care (as documented) at patient's floor/unit and/or counseling patient: Coding Level of Care Code Established Pt INP/OBS CONSULT LVL 5, 80 MIN Patient Type Established Medical Decision Making High Complexity Diagnoses Fall W19.XXXA Encounter type: initial encounter Acute hyponatremia E87.1 Closed left humeral fracture S42.292A Encounter type: initial encounter Fracture alignment: displaced Fracture morphology: other fracture Humerus Location: proximal Acute alcohol intoxication F10.929 GERD (gastroesophageal reflux disease) K21.9 Hypertension I10 Pre-diabetes R73.03 Anxiety F41.9 (1) Fall Encounter type: initial encounter Qualified Code(s): W19.XXXA - Unspecified fall, initial encounter (2) Closed left humeral fracture Encounter type: initial encounter Fracture alignment: displaced Fracture morphology: other fracture Humerus Location: proximal Qualified Code(s): S42.292A - Other displaced fracture of upper end of left humerus, initial encounter for closed fracture
[2022-12-08] MEDS ORDERED: GLUCOSE 10 TAB/TUBE PO PRN ×2 (11:16→15:15)
[2022-12-08] MEDS ORDERED: GLUCAGON FOR INJ 1 MG VIAL SQ PRN (11:16)
[2022-12-08] MEDS ORDERED: CARBOHYDRATES FOR HYPOGLYCEMIA PO PRN ×2 (11:16→15:15)
[2022-12-08] MEDS ORDERED: GLUCOSE 40% GEL 15 GM TUBE PO PRN ×2 (11:16→15:15)
[2022-12-08] MEDS ORDERED: DEXTROSE 50% 50 ML SYRINGE IV PRN ×2 (11:16→15:15)
[2022-12-08] MEDS ORDERED: PHARMACY GLYCEMIC MGMT CONSULT PRN (11:17)
[2022-12-08 11:22] LABS: Albumin Globulin Ratio 1.2 (0.9-2); Albumin Level 3.6 gm/dl (3.4-5.0); BUN Creatinine Ratio 19.6 (10-20); Bilirubin,Total 0.6 mg/dl (0.2-1.0); Calcium 8.5 mg/dl (8.5-10.1); Creatinine Clr Calc Pharmacy 125.4 ml/min; Est GFR (African American) 120.3 ml/min; Est GFR (Non-African American) 103.8 ml/min; Globulin 3.1 gm/dl (2.5-4.0); Potassium 4.2 mmol/L (3.5-5.1); Total Protein 6.7 gm/dl (6.0-8.3)
[2022-12-08] MEDS ORDERED: INSULIN ASPART PER UNIT SC SCH (11:30)
[2022-12-08] MEDS: VENLAFAXINE HCL XR 75 MG CAPXR PO SCH (12:20)
[2022-12-08] MEDS: SODIUM CHLORIDE 0.9% 1000ML 1,000 ML IV SCH ×2 (12:27→21:48)
[2022-12-08] MEDS: INSULIN ASPART PER UNIT SC SCH ×2 (12:34→21:48)
--- NOTE | 2022-12-08 12:55 | Pharmacy Report ---
Pharmacy Glycemic Short Note 2 - Date of Service December 08, 2022 - Glycemic Short BSG Results (Last 24 hours): 12/08/22 12/08/22 12/08/22 04:54 09:43 10:22 Glucose 122 H 98 POC Glucose 99 12/08/22 12:16 Glucose POC Glucose 90 OUTPATIENT ANTIDIABETIC REGIMEN: * Metformin 500mg PO BID ASSESSMENT: * BEBETO is a 62 year old female with a history of pre-diabetes who was admitted for surgery following a fall at home. * A1c ordered for tomorrow AM. Patient controls blood glucose with metformin outpatient. * Prior to consultation, glucose levels of 122 mg/dL and 98 mg/dl were drawn at 0454 and 0954, respectively. Fasting POC of 99 mg/dl drawn at 12/08/22. * No notable stressors to glycemic control noted on the patient at this time, will continue to monitor throughout the post-surgical process. * Will start bolus insulin inbetween a stress level of 1 and 2. PLAN FOR INPATIENT GLYCEMIC CONTROL: * Hold outpatient oral diabetes medications (metformin) * Bolus insulin * NovoLog per scale ACHS or Q6hrs while NPO * Goal Range: Low 110 mg/dL - High 140 mg/dL * Correction Factor: 35 mg/dL/unit * Nutritional / Prandial insulin per carb ratio of 1 unit per 12 grams CHO consumed
--- NOTE | 2022-12-08 13:37 | History & Physical Report ---
Date of Service December 08, 2022 Assessment & Plan (1) Closed fracture of left proximal humerus: Plan: She may continue the makeshift sling that is in place. Patient will be scheduled for an ORIF of a left proximal humerus fracture later today. She is currently NPO. All potential risks, benefits, complications, alternatives, and rehab have been discussed with the patient and she wishes to proceed with the surgery as indicated. A surgical consent was placed on the front of the patient's chart for Dr. Marcano to review and sign with the patient. Pain controlas written. Admission and Anticipated Discharge Date Admission Date: December 08, 2022 History of Present Illness Chief Complaint: Left shoulder pain Primary Care Provider: Eros Kan This is a patient who was at home last evening and walking in her bare feet. She states that her feet slipped on a wet floor and she fell into a cabinet and subsequently fell onto her left side. She had significant pain in the left shoulder. She was brought to [facility] ER where x-rays were performed and she was noted to have a displaced proximal humerus fracture. She was admitted for pain control. She is now being evaluated for surgical management. Allergies Allergy/AdvReac Type Severity Reaction Status Date / Time No Known Allergies Allergy Verified 08/01/22 11:18 Home Medications Medication Instructions Recorded Confirmed Type metformin 500 mg tablet 500 mg PO BID 09/04/19 12/08/22 History my-8-[id number]-epa-fish oil-vit D3 300 2 cap PO QAM 09/04/19 12/08/22 History mg-1,000 mg-1,000 unit capsule (Fish Oil-Vit D3) timolol maleate 0.25 % eye drops 1 drp OPB HS 09/04/19 12/08/22 History venlafaxine 150 mg 150 mg PO QAM 09/04/19 12/08/22 History capsule,extended release 24 hr venlafaxine 75 mg capsule,extended 75 mg PO QAM 09/04/19 12/08/22 History release 24 hr zolpidem 5 mg tablet 5 mg PO HS PRN Sleep 09/04/19 12/08/22 History amlodipine 5 mg PO HS 05/30/21 12/08/22 History losartan 25 mg PO HS 05/30/21 12/08/22 History nystatin-triamcinolone 100,000 1 applic topical BID #30 grams 08/01/22 12/08/22 Rx unit/g-0.1 % topical cream rosuvastatin [Crestor] 10 mg PO HS 08/01/22 12/08/22 History Past Med/Surg History Medical History Abnormal menses Acute hyponatremia Anxiety C2 cervical fracture nonoperative management by Dr. Merrill; healed Cervical spinal cord compression Closed left humeral fracture Concussion GERD (gastroesophageal reflux disease) Hypertension Increased pressure in the eye Pre-diabetes Scar condition and fibrosis of skin s/p revision of forehead/scalp laceration 11/15/19 due to fall Surgical History History of colonoscopy History of fusion of cervical spine Family History Father Atrial fibrillation Prostate cancer Mother Diabetes Pancreatic cancer Melanoma Brother Melanoma Denies family history of Ovarian cancer Myocardial infarction Breast cancer Colorectal cancer Social History Smoking Status: Former smoker Second Hand Exposure: No; Do You Dip or Chew Tobacco: No; Hx Alcohol Use: No Hx Substance Use: No Preferred Language: Fijian Communication Ability: Effective Restaurant Inspector Required: No Beliefs That Will Affect Care: None Current Living Situation: Spouse Other Information That Helps Us Care for You: No Feels Safe at Home: Yes Safety Concerns: Feels Safe At This Time Assistive Devices: Glasses Physical Exam Constitutional: WD/WN, vitals as above + obese; no acute distress ENMT: external ear and nose normal, oropharynx normal Neck: trachea midline Respiratory: normal respiratory effort Auscultation: lungs clear to auscultation bilaterally Cardiovascular: Rate/Rhythm: regular rate and regular rhythm Musculoskeletal: Shoulder: + ecchymosis (Left shoulder), + limited ROM (Not tested in the left shoulder because of known fracture) and + joint line tenderness (Left proximal humerus); no skin erythema Skin: no rashes, warm and dry Trauma: no evidence of skin trauma Neurologic: normal touch/pain/proprioception Psychiatric: A+Ox3, euthymic affect Speech: normal rate/rhythm/volume of speech Results & Data ([facility]) Vital Signs (Past 12 Hours) Vital Signs Temp Pulse Pulse Resp BP BP Pulse Ox 12/08/22 08:05 36.7 C 105 H 18 136/84 92 12/08/22 07:00 113 H 15 116/81 92 12/08/22 06:30 115 H 20 95 12/08/22 06:09 105 H 16 142/97 H 95 12/08/22 05:22 106 H 96 12/08/22 05:00 114 H 14 153/107 H 12/08/22 04:21 36.7 C 120 H 20 162/114 H 98 O2 Del Method 12/08/22 08:05 Room Air 12/08/22 07:00 Room Air 12/08/22 06:30 12/08/22 06:09 Room Air 12/08/22 05:22 Room Air 12/08/22 05:00 12/08/22 04:21 Room Air Diagnostic Findings Left shoulder x-rays and CT reviewed. There is a displaced proximal humerus fracture at the most proximal aspect of the humeral shaft. The fracture is displaced 100%. The humeral head appears intact. Code Status & VTE Plan VTE Prophylaxis Plan VTE Prophylaxis will be ordered: No Reason for no VTE drug order: Treatment not indicated Supervising Physician Co-Signing Physician Notes Patient seen and examined. Agree with KENNETH Merida's note as above. Patient has a severely displaced left proximal humerus fracture. This occurred during a ground-level fall when she slipped on a wet floor. Her alcohol was significantly elevated upon admission this morning, but she denies that alcohol had anything to do with the fall. She denies chronic alcohol use/abuse. Exam shows motor and sensory function is intact in the median, ulnar, and radial nerve distributions. ORIF of this left proximal humerus fracture was recommended. Risks, benefits, and alternatives of surgery were explained in detail. The surgical procedure, as well as postoperative recovery and rehabilitation, was also explained in detail. Risks include bleeding; infection; damage to surrounding structures such as nerves, blood vessels, and tendons that run in the area; persistent pain or stiffness; nonunion; malunion; hardware failure; painful prominent hardware requiring removal; or need for further surgery. The patient understands all of this and wishes to proceed with surgery. Informed consent was obtained.
[2022-12-08] MEDS ORDERED: GLUCAGON FOR INJ 1 MG VIAL IM PRN (15:15)
--- NOTE | 2022-12-08 15:15 | Electrocardiogram Report ---
Test Reason : Blood Pressure : / mmHG Vent. Rate : 109 BPM Atrial Rate : 109 BPM P-R Int : 152 ms QRS Dur : 072 ms QT Int : 348 ms P-R-T Axes : 061 -15 058 degrees QTc Int : 468 ms Poor data quality, interpretation may be adversely affected Sinus tachycardia Nonspecific T wave abnormality Anterior leads Abnormal ECG When compared with ECG of 07-NOV-2019 10:28, Nonspecific T wave abnormality now evident in Anterior leads Confirmed by Yonis Guallpa ([id number]) on 12/08/2022 3:15:01 PM Referred By: REFERRED SELF Confirmed By:Yonis Guallpa
[2022-12-08 15:30] LABS: Albumin Globulin Ratio 1.3 (0.9-2); Albumin Level 3.7 gm/dl (3.4-5.0); BUN Creatinine Ratio 18.6 (10-20); Bilirubin,Total 0.7 mg/dl (0.2-1.0); Calcium 8.4 mg/dl (8.5-10.1); Creatinine Clr Calc Pharmacy 108.4 ml/min; Est GFR (African American) 114.7 ml/min; Est GFR (Non-African American) 98.9 ml/min; Globulin 2.9 gm/dl (2.5-4.0); Potassium 4.1 mmol/L (3.5-5.1); Total Protein 6.6 gm/dl (6.0-8.3)
[2022-12-08] MEDS ORDERED: ROPIVACAINE 0.5% 5 MG/ML 30 ML VIAL ONE (15:46)
[2022-12-08] MEDS ORDERED: ceFAZolin 2000MG 2,000 MG/15 ML SYR IV ONE (16:46)
[2022-12-08] MEDS ORDERED: MIDAZOLAM HCL 1 MG/ML 2ML VIAL ONE (16:56)
[2022-12-08] MEDS ORDERED: fentaNYL citrate 100 MCG/2 ML VIAL ONE ×2 (16:57→17:51)
[2022-12-08] MEDS ORDERED: DEXAMETHASONE SOD INJ 4 MG/ML VIAL ONE (17:51)
[2022-12-08] MEDS ORDERED: LIDOCAINE 2% MPF LOCAL 5 ML VIAL INFIL ONE (17:51)
[2022-12-08] MEDS ORDERED: ALBUTEROL HFA 8 GM INHALER INH ONE (17:51)
[2022-12-08] MEDS ORDERED: SUCCINYLCHOLINE CHLORIDE 20 MG/ML 10 ML VIAL IV ONE (17:51)
[2022-12-08] MEDS ORDERED: ONDANSETRON INJ 2 MG/ML 2 ML VIAL ONE (17:51)
[2022-12-08] MEDS ORDERED: ROCURONIUM BROMIDE 10 MG/ML 5 ML VIAL IV ONE (17:51)
[2022-12-08] MEDS ORDERED: PROPOFOL IV EMULSION 10 MG/ML 20 ML VIAL IV ONE (17:51)
[2022-12-08] MEDS ORDERED: ePHEDrine sulfate 50 MG/ML AMP IV PRN (18:18)
[2022-12-08] MEDS ORDERED: ATROPINE SULFATE 0.1 MG/ML 10ML SYR IV PRN (18:18)
[2022-12-08] MEDS ORDERED: PROMETHAZINE HCL 12.5 MG in SODIUM CHLORIDE 0.9% 50 ML IV PRN (18:18)
[2022-12-08] MEDS ORDERED: HYDROmorphone INJ 2 MG/ML SYR/VIAL IV PRN (18:18)
[2022-12-08] MEDS ORDERED: fentaNYL citrate 100 MCG/2 ML VIAL IV PRN (18:18)
[2022-12-08] MEDS ORDERED: ePHEDrine sulfate 50 MG/ML SYR ONE (19:06)
[2022-12-08] MEDS ORDERED: PHENYLEPHRINE 100MCG/ML 5ML SYR ONE (19:06)
[2022-12-08] MEDS ORDERED: PHENYLEPHRINE HCL 10 MG/ML VIAL ONE (19:06)
--- NOTE | 2022-12-08 20:35 | Operative Report ---
Post Operative Report Pre & Post Diagnosis Operation Date: 12/08/22 11:00 Pre-Op Diagnosis: Left shoulder severely displaced and severely comminuted proximal humerus fracture Post-Op Diagnosis: Left shoulder severely displaced and severely comminuted proximal humerus f racture, osteoporosis I identified the patient and participated in the time-out.: Yes Procedure Operation Date: 12/08/22 11:00 Actual Procedures Left shoulder open reduction and internal fixation of severely displaced and severely comminuted proximal humerus fracture (03466 - [id number]) - Lobito Marcano M.D. Surgeon Lobito Marcano MD Angiography Nurse Dick Dickens PA-C Estimated Blood Loss 100 Findings Consistent with Post-Op Diagnosis Specimens None Drains None Anesthesia Type General Regional Complications none Disposition Disposition: Recovery Room Indications Ms. Isabel is a 62-year old female who injured her left shoulder during a ground-level fall this morning. History, clinical exam, and imaging were consistent with the above diagnosis. Risks, benefits, and alternatives of surgery were explained in detail. The patient understood all this and wished to proceed. Description of Procedure Patient was identified in the preoperative holding area. Operative extremity was marked. Regional blockade was given by the Anesthesia Staff. Patient was then brought back to the operating room, and general anesthesia was induced without complication. Appropriate weight-based dose of Ancef was infused intravenously for antibiotic prophylaxis. The patient was then placed in the beachchair position. Left arm was then prepped and draped in a standard sterile fashion using Chlorhexidine prep. Bony landmarks were very difficult to palpate. She clearly had morbid obesity despite the calculated BMI of 34; this was based on a self-reported weight of about 200 pounds, but clinically she appeared much larger than this. A standard deltopectoral incision was made through the skin and abundant subcutaneous tissue. The cephalic vein was identified and retracted medially. Small branches to the deltoid were coagulated as necessary. The clavipectoral fascia was then incised and the subdeltoid space was opened. The fracture site was then exposed. This was a severely displaced and severely comminuted fracture of the proximal humeral metaphysis. Hematoma debris was debrided from the fracture site with curette, rongeur, and suction. Numerous comminuted bony fragments were removed, cleaned, and morselized for later bone grafting. Soft tissue was stripped from the ends of the fracture fragments as necessary for proper reduction visualization. Biceps tendon was dissected through the fracture site and retracted to avoid entrapment within the fracture during fracture reduction. Due to the severity of the comminution at the fracture site, it was very difficult to get a molina to reduction. I was also unable to place any type of reduction clamps at the fracture site to temporarily hold the reduction due to the severe comminution. K-wires were inserted into the humeral head to manipulate the head independent of the humeral shaft. I eventually just had to fixate the plate onto the humeral head segment in roughly proper position; this was also very difficult to hold the plate in proper position onto the head due to her obvious severe osteoporosis. A plate was selected from the [employer] 3.5 mm locking proximal humerus plate set; I had to use an extended 5 hole plate to span the severely comminuted metaphyseal segment. This was pinned in position into the head. Fluoroscopic imaging was used to verify proper plate position it was very difficult to get good x-ray views as I was unable to rotate the head with the plate pinned in place due to her abundant soft tissue envelope. Once I had adequate fixation into the head segment and what appeared to be proper plate position, I then reduced the shaft to the plate and placed a nonlocking screw to reduce the plate to bone. I placed additional nonlocking and locking screws into the humeral shaft as appropriate. Final fluoroscopic images were obtained to ensure acceptable fracture reduction, plate position, and screw length. I also obtained live fluoroscopic images during shoulder rotation to ensure that none of the proximal locking screws penetrated the articular surfac e. The shoulder rotated smoothly without any crepitus. Wound was then copiously irrigated with sterile saline. I then used cancellous allograft chips mixed with demineralized bone matrix and packed this into the very large bony void in the humeral metaphysis. The previously morselized autograft bone chips were also packed into the fracture site. Deep fascia was then closed with 0 V-lock suture. Subcutaneous tissue was closed with 2-0 V- lock, and skin was closed with 3-0 V-lock. Skin was then sealed with Dermabond. Sterile dressings were then applied with a waterproof silver-impregnated dressing, and the arm was placed into a sling. The drapes were removed, the patient was awakened from anesthesia, and taken to the Post Anesthesia Care Unit in stable condition. There were no immediate complications from the procedure. I was present and scrubbed for the entire procedure. Due to the complex nature of the procedure, the entire surgery was performed with the operational assistance of Dick Dickens PA-C. The grants assistant, under direct supervision, was involved in the performance of all aspects of the surgical procedure including patient positioning, tissue retraction, hemostasis, wound closure, and dressing application. This was an extremely difficult fracture to fix. The severely comminuted nature of the fracture made it very difficult to reduce, and required an extended plate to span the comminuted fracture site. The longer plate requirement, and her morbid obesity required an approximately 30% larger incision than normal. Her morbid obesity also caused quite a bit of difficulty with obtaining proper views with fluoroscopic imaging. This procedure took approximately 60% longer than normal to complete. This procedure therefore qualifies for a 22 modifier. I attest to the content of the Intraoperative Record and any orders documented therein. Any exceptions are noted below.
[2022-12-08] MEDS ORDERED: ALBUT/IPRATROP 3MG/0.5MG NEB 3 ML VIAL ONE (20:42)
[2022-12-08] MEDS ORDERED: ALBUT/IPRATROP 3MG/0.5MG NEB 3 ML VIAL NEB STA (20:54)
--- NOTE | 2022-12-08 20:56 | Fluoroscopy Report ---
FL humerus LT 2V CLINICAL HISTORY: Left humeral fracture.Intraoperative study. COMPARISON STUDY: Left humerus 12/08/2022. FLUOROSCOPY TIME: 53 seconds. FINDINGS: 2 fluoroscopic spot images of the left humerus. There is a lateral cortical plate transfixe d with screws bridging the left humeral neck fracture. The hardware appears intact. Alignment is near -anatomic. IMPRESSION: Fluoroscopic assistance provided for internal fixation of a left humeral neck fracture. ACT 112: Negative or not required by law. Electronically signed by: Jefry Bach M.D. 12/08/2022 8:55 PM
[2022-12-08] MEDS ORDERED: TIMOLOL GFS 0.5% OPH SOLN 74 DROPS/5 ML BTL OPB SCH (21:00)
[2022-12-08] MEDS ORDERED: LANTUS PER UNIT CHARGE SQ SCH (21:00)
[2022-12-08] MEDS ORDERED: amLODIPine BESYLATE 5 MG TAB PO SCH (21:00)
[2022-12-08] MEDS ORDERED: ROSUVASTATIN CALCIUM 10 MG TAB PO SCH (21:00)
--- NOTE | 2022-12-08 21:29 | Anesthesiology Progress Note ---
Date of Service December 08, 2022 Anesthesia Post Procedure Vital Signs Vital Signs: Temp Pulse Pulse Pulse Resp BP BP 12/08/22 21:10 104 H 18 135/86 12/08/22 21:00 107 H 19 126/97 12/08/22 20:50 107 H 15 126/98 12/08/22 20:42 36.6 C 107 H 19 137/96 12/08/22 16:36 37.2 C 105 H 20 147/116 H 12/08/22 14:41 37.4 C 92 H 18 144/90 H 12/08/22 08:05 36.7 C 105 H 18 136/84 12/08/22 07:00 113 H 15 116/81 12/08/22 06:30 115 H 20 12/08/22 06:09 105 H 16 142/97 H 12/08/22 05:22 106 H 12/08/22 05:00 114 H 14 153/107 H 12/08/22 04:21 36.7 C 120 H 20 162/114 H Pulse Ox O2 Del Method O2 Flow Rate 12/08/22 21:10 96 Nasal Cannula 2 12/08/22 21:00 99 Nebulizer 10 12/08/22 20:50 99 Oxymask 10 12/08/22 20:42 99 Oxymask 10 12/08/22 16:36 92 Room Air 12/08/22 14:41 95 Room Air 12/08/22 08:05 92 Room Air 12/08/22 07:00 92 Room Air 12/08/22 06:30 95 12/08/22 06:09 95 Room Air 12/08/22 05:22 96 Room Air 12/08/22 05:00 12/08/22 04:21 98 Room Air Pain Intensity Left Shoulder: Pain Intensity: 8 Transfer of Care Handoff Completed per policy Notes Mental Status: alert / awake / arousable and participated in evaluation Patient Amnestic to Procedure: Yes Nausea / Vomiting: adequately controlled Pain: adequately controlled Airway Patency, RR, SpO2: stable & adequate BP & HR: stable & adequate Hydration State: stable & adequate Anesthetic Complications: no major complications apparent
[2022-12-08] MEDS ORDERED: METOCLOPRAMIDE HCL INJ 5 MG/ML 2 ML VIAL IV PRN (21:40)
[2022-12-08] MEDS ORDERED: SODIUM CHLORIDE 0.9% 1000ML 1,000 ML IV SCH (21:40)
[2022-12-08] MEDS ORDERED: SENNA 8.6 MG TAB PO SCH (21:40)
[2022-12-08] MEDS ORDERED: NALOXONE HCL 0.4 MG/1 ML VIAL/CARP IV PRN (21:40)
[2022-12-08] MEDS ORDERED: MAGNESIUM HYDROXIDE SUSP 30 ML UDC PO PRN (21:40)
[2022-12-08] MEDS ORDERED: bisacodyL 10 MG SUPP PR PRN (21:40)
[2022-12-08] MEDS: ACETAMINOPHEN 500 MG TAB PO SCH (21:47)
[2022-12-08] MEDS: DOCUSATE SODIUM 100 MG CAP PO SCH (22:17)
[2022-12-08] MEDS ORDERED: Nursing to Pharmacy Communication SCH (22:30)
[2022-12-09] MEDS: ACETAMINOPHEN 500 MG TAB PO SCH ×3 (00:49→12:37)
[2022-12-09] MEDS: ceFAZolin 2000MG 2,000 MG/15 ML SYR IV SCH ×2 (00:50→09:20)
[2022-12-09] MEDS: IBUPROFEN 600 MG TAB PO SCH ×3 (03:05→15:17)
[2022-12-09 06:26] LABS: BUN Creatinine Ratio 18.2 (10-20); Calcium 8.1 mg/dl (8.5-10.1); Creatinine Clr Calc Pharmacy 96.9 ml/min; Est GFR (African American) 110.5 ml/min; Est GFR (Non-African American) 95.3 ml/min; Potassium 4.7 mmol/L (3.5-5.1)
[2022-12-09 06:37] LABS: Basophils # (auto) 0.01 K/uL (0-0.2); Basophils % (auto) 0.1 %; Hemoglobin 9.7 g/dl (12.0-16.0); Immature Granulocytes # (auto) 0.06 K/uL (0.00-0.02); Immature Granulocytes % (auto) 0.5 %; Lymphocytes # (auto) 0.79 K/uL (1.2-3.4); Lymphocytes % (auto) 6.9 %; Mean Corpuscular Hemoglobin 31.9 pg (25.0-34.0); Mean Corpuscular Hgb Conc 34.6 g/dL (32.0-36.0); Mean Corpuscular Volume 92.1 fL (80.0-100.0); Mean Platelet Volume 9.6 fL (9.4-12.3); Monocytes # (auto) 0.85 K/uL (0.24-0.82); Monocytes % (auto) 7.5 %; Neutrophils # (auto) 9.66 K/uL (1.4-6.5); Platelet Count 202 K/uL (130-400); RDW Coefficient of Variation 12.8 % (11.5-14.5); RDW Standard Deviation 43.1 fL (36.4-46.3); Red Blood Count 3.04 M/uL (3.93-5.22); White Blood Count 11.37 K/ul (4.8-10.8)
[2022-12-09 07:30] LABS: Estimated Average Glucose 100 mg/dl; Hemoglobin A1C 5.1 % (4.5-5.6)
--- NOTE | 2022-12-09 07:43 | Hospitalist Consultation ---
Date of Consultation December 09, 2022 History of Present Illness Attending Physician: Lobito Marcano Allergies Allergy/AdvReac Type Severity Reaction Status Date / Time No Known Allergies Allergy Verified 08/01/22 11:18 Home Medications Medication Instructions Recorded Confirmed Type metformin 500 mg tablet 500 mg PO BID 09/04/19 12/08/22 History iz-7-[id number]-epa-fish oil-vit D3 300 2 cap PO QAM 09/04/19 12/08/22 History mg-1,000 mg-1,000 unit capsule (Fish Oil-Vit D3) timolol maleate 0.25 % eye drops 1 drp OPB HS 09/04/19 12/08/22 History venlafaxine 150 mg 150 mg PO QAM 09/04/19 12/08/22 History capsule,extended release 24 hr venlafaxine 75 mg capsule,extended 75 mg PO QAM 09/04/19 12/08/22 History release 24 hr zolpidem 5 mg tablet 5 mg PO HS PRN Sleep 09/04/19 12/08/22 History amlodipine 5 mg PO HS 05/30/21 12/08/22 History losartan 25 mg PO HS 05/30/21 12/08/22 History nystatin-triamcinolone 100,000 1 applic topical BID #30 grams 08/01/22 12/08/22 Rx unit/g-0.1 % topical cream rosuvastatin [Crestor] 10 mg PO HS 08/01/22 12/08/22 History Patient History Medical History Abnormal menses Acute hyponatremia Anxiety C2 cervical fracture nonoperative management by Dr. Merrill; healed Cervical spinal cord compression Closed left humeral fracture Concussion GERD (gastroesophageal reflux disease) Hypertension Increased pressure in the eye Pre-diabetes Scar condition and fibrosis of skin s/p revision of forehead/scalp laceration 11/15/19 due to fall Surgical History History of colonoscopy History of fusion of cervical spine Family History Father Atrial fibrillation Prostate cancer Mother Diabetes Pancreatic cancer Melanoma Brother Melanoma Denies family history of Ovarian cancer Myocardial infarction Breast cancer Colorectal cancer Social History Smoking Status: Former smoker Second Hand Exposure: No; Do You Dip or Chew Tobacco: No; Hx Alcohol Use: No Hx Substance Use: No Preferred Language: Danish Communication Ability: Effective Bakery Decorator Required: No Beliefs That Will Affect Care: None Current Living Situation: Spouse Other Information That Helps Us Care for You: No Feels Safe at Home: Yes Safety Concerns: Feels Safe At This Time Assistive Devices: Glasses Results & Data Results & Data ([facility]) Vital Signs (Past 12 Hours) Vital Signs Temp Pulse Pulse Resp BP Pulse Ox O2 Del Method 12/09/22 04:30 36.8 C 87 16 122/83 94 Nasal Cannula 12/09/22 00:38 36.6 C 93 H 16 117/82 95 Nasal Cannula 12/08/22 23:34 36.8 C 92 H 17 117/79 98 Nasal Cannula 12/08/22 22:35 36.8 C 90 18 114/81 97 Nasal Cannula 12/08/22 21:30 Nasal Cannula 12/08/22 21:30 36.9 C 103 H 16 131/85 95 Nasal Cannula 12/08/22 22:14 96 H 16 118/78 94 Nasal Cannula 12/08/22 21:10 104 H 18 135/86 96 Nasal Cannula 12/08/22 21:00 107 H 19 126/97 99 Nebulizer 12/08/22 20:50 107 H 15 126/98 99 Oxymask 12/08/22 20:42 36.6 C 107 H 19 137/96 99 Oxymask O2 Flow Rate 12/09/22 04:30 1 12/09/22 00:38 1 12/08/22 23:34 1 12/08/22 22:35 1 12/08/22 21:30 2 12/08/22 21:30 2 12/08/22 22:14 2 12/08/22 21:10 2 12/08/22 21:00 10 12/08/22 20:50 10 12/08/22 20:42 10
[2022-12-09] MEDS: DOCUSATE SODIUM 100 MG CAP PO SCH (08:30)
[2022-12-09] MEDS: VENLAFAXINE HCL XR 75 MG CAPXR PO SCH (08:31)
[2022-12-09] MEDS: oxyCODONE HCL IR 5 MG TAB (IMMEDIATE RELEASE) PO PRN ×2 (08:32→16:17)
--- NOTE | 2022-12-09 08:41 | XRay Report ---
XR humerus LT 2V CLINICAL HISTORY: post op orif left prox humerus COMPARISON: Left humerus radiographs and CT December 08, 2022. FINDINGS: Plate and screw fixation of the left humeral neck fracture is noted with bone graft materi al. Hardware is intact. There are no unexpected radiopaque foreign bodies. Fracture alignment has sig nificantly improved and appears near anatomic. Left elbow is suboptimally assessed given flexion. IMPRESSION: Postoperative radiographs demonstrating internal fixation of the left humeral neck fractu re. ACT 112: Negative or not required by law. Electronically signed by: Acosta Bermudez M.D. 12/09/2022 8:40 AM
[2022-12-09] MEDS ORDERED: MULTIVITAMIN TAB PO SCH (09:00)
[2022-12-09] MEDS ORDERED: ASPIRIN/ALUM/MAGNES/CAL CARB 325 MG TAB PO SCH (09:00)
--- NOTE | 2022-12-09 09:10 | Pharmacy Report ---
Glycemic Ortho Sign Off Note - Date of Service December 09, 2022 - Scope Glycemic Pharmacist consulted for glycemic control and to write orders per [facility] inpatient glycemic control protocol. - Objective Accuchecks BSG (last 24hrs):: 12/08/22 12/08/22 12/08/22 09:43 10:22 12:16 Glucose 98 POC Glucose 99 90 12/08/22 12/08/22 12/09/22 14:38 20:59 05:28 Glucose 89 144 H POC Glucose 123 H 12/09/22 08:03 Glucose POC Glucose 121 H HbA1c:: Hemoglobin A1c 5.1 % (4.5-5.6) 12/09/22 05:28 - Assessment * Pt is maintained on oral antidiabeticagentas anoutpatient with excellent control per recent A1c * Low stress weight based insulin (correctional only) dosing appropriate since patient has minimal risk factors for insulin resistance (i.e. no ongoing steroids). * Appropriate to DC insulin and resume outpatient antidiabetic regimen at discharge * Will restart home metformin today, renal function appears to be at baseline * Goal is to maintain BSGs <200 mg/dl (ideally <150 mg/dl) to prevent post op complications - Plan For Inpatient Glycemic Control * Basal insulin * Not needed based on A1c, pre-op BSGs, and minimal risk factors for insulin resistance * Bolus insulin * Utilize low stress weight based NovoLog parameters per scale ACHS. Correctional only in addition to metformin * Metformin 500mg PO BID. * Pharmacy has entered glycemic orders and is signing off of the glycemic consult. We will no longer be making adjustments to inpatient regimen. Please feel free to re-consult if needed. Thank you.
[2022-12-09] MEDS ORDERED: metFORMIN HCL 500 MG TAB PO SCH (09:15)
[2022-12-09] MEDS: INSULIN ASPART PER UNIT SC SCH ×2 (09:16→12:34)
--- NOTE | 2022-12-09 09:37 | Hospitalist Progress Note ---
Date of Service December 09, 2022 Assessment & Plan (1) Closed fracture of left proximal humerus: (2) Acute hyponatremia: (3) GERD (gastroesophageal reflux disease): (4) Hypertension: (5) Pre-diabetes: (6) Fall: (7) Anxiety: (8) Acute alcohol intoxication: Plan #Fall #Closed Left humeral fracture -Patient is currently afebrile, hemodynamically stable, and stable on RA -Patient sustained a mechanical fall in her bathroom 2 nights ago, fell on her left arm and sustained a displaced left proximal humerus fracture -No other acute trauma noted on exam -Pain control, perioperative antibiotics, and DVT PPX per the primary team -Fall seems mechanical in nature w/o syncope or LOC. #Acute hyponatremia: -Initial sodium noted to be 126, only other sodium was back in 2019 which was 134 -acute hyponatremia is likely due to excessive alc use -S/P 1L NSS bolus in the ED this am -Sodium improved to 133 today. No intervention needed at this time. Follow up with PCP in 1-2 weeks, may consider repeating BMP at that time. #Acute alcohol intoxication: -Initial alcohol level elevated on admission. -Patient reports drinking approximately 4-5 beers 3-5 times weekly, -No s/s of alcohol withdrawal while admitted. On AWSS protocol. F/u with PCP. #GERD (gastroesophageal reflux disease): -40 mg IV Protonix daily while admitted for stress ulcer prophylaxis in setting of at risk alcohol use. -Can D/C at time of discharge. #Hypertension: -Hemodynamically stable -Losartan restarted. -Continue HS amlodipine #Pre-diabetes: -resumed metformin -BSG goal range of 110-140. SSI -glycemic consult -A1c was 5.1 #Anxiety: -Continue venlafaxine Dispo: PCP f/u in 1-2 weeks after discharge. Thank you for allowing me to participate in the care of your patient. -Dr. José Manuel Alcazar PGY1 Admission and Anticipated Discharge Date Admission Date: December 08, 2022 Supervising Physician Co-Signing Physician Notes Resident Physician Supervision Note: I independently interviewed and examined the patient and verified the molina history and physical, reviewed labs and image studies and agree with resident findings and care plan. Subjective Patient is doing well today. Her pain is well controlled and she has no issues or concerns at this time. Review of Systems Review of Systems: All systems reviewed & are unremarkable except as noted in HPI & below Physical Exam Physical Exam: Constitutional: well-appearing, no acute distress HEENT: NCAT, no conjunctival injection CV: regular rhythm, no murmur appreciated, extremities well-perfused, no LE edema Resp: CTABL, no wheezes/rales/rhonchi appreciated, no increased work of breathing GI: soft, nondistended, nontender, BS normoactive MSK: no gross deformities appreciated Skin: warm, dry, no rash appreciated Neuro: alert, oriented, no focal neurologic deficit appreciated Results & Data Results & Data ([facility]) Vital Signs (Past 12 Hours) Vital Signs Temp Pulse Pulse Resp BP Pulse Ox O2 Del Method 12/09/22 09:09 Room Air 12/09/22 07:56 37.0 C 85 18 124/83 95 Room Air 12/09/22 04:30 36.8 C 87 16 122/83 94 Nasal Cannula 12/09/22 00:38 36.6 C 93 H 16 117/82 95 Nasal Cannula 12/08/22 23:34 36.8 C 92 H 17 117/79 98 Nasal Cannula 12/08/22 22:35 36.8 C 90 18 114/81 97 Nasal Cannula 12/08/22 22:14 96 H 16 118/78 94 Nasal Cannula O2 Flow Rate 12/09/22 09:09 12/09/22 07:56 12/09/22 04:30 1 12/09/22 00:38 1 12/08/22 23:34 1 12/08/22 22:35 1 12/08/22 22:14 2 Resident Activity Tracking Resident Involvement: Resident Care Provided Care Provided: Adult Hospital Medicine (1) Fall Encounter type: initial encounter Qualified Code(s): W19.XXXA - Unspecified fall, initial encounter
[2022-12-09] MEDS ORDERED: PANTOprazole 40 MG in SYRINGE 0 ML IV SCH (11:00)
[2022-12-09] MEDS ORDERED: LOSARTAN POTASSIUM 25 MG TAB PO SCH (21:00)
--- NOTE | 2022-12-16 16:39 | Discharge Summary ---
Date of Service December 16, 2022 Admission HPI Per Admitting Provider This is a patient who was at home last evening and walking in her bare feet. She states that her feet slipped on a wet floor and she fell into a cabinet and subsequently fell onto her left side. She had significant pain in the left shoulder. She was brought to [facility] ER where x-rays were performed and she was noted to have a displaced proximal humerus fracture. She was admitted for pain control. She is now being evaluated for surgical management. Principal Diagnosis Left proximal humerus fracture Discharge Data Allergies Allergy/AdvReac Type Severity Reaction Status Date / Time No Known Allergies Allergy Verified 08/01/22 11:18 Consultations 12/08/22 05:56 ED Decision to Admit Stat 12/08/22 09:29 Consult Internal Medicine Routine Procedures Performed Operation Date: 12/08/22 11:00 Actual Procedures p Left Proximal Humerus Fracture Open Reduction Internal Fixation(Left) - Lobito Marcano M.D. Ordered Studies 12/08/22 05:37 CT shoulder LT wo con Stat 12/08/22 14:26 US - OR guided needle placemen Routine 12/08/22 17:00 FL humerus LT 2V Routine Hospital Course (1) Closed fracture of left proximal humerus: Patient underwent a left shoulder ORIF of a severely comminuted and displaced proximal humerus on the date of admission. Patient tolerated the procedure well and was transferred up to the general orthopedic surgery floor in stable condition. Perioperative antibiotic coverage was initiated, and continued for 24 hours postoperatively. DVT prophylaxis was initiated consisting of SCDs and aspirin 325 mg daily. Perioperative pain control regimen was transitioned to strictly oral pain medications by postoperative day 1. Internal medicine consultation was requested due to the patient's high alcohol level upon admission, as well as electrolyte abnormalities; they concluded that this was consistent with "beer drinkers potomania." Her electrolytes corrected with fluid administration, and she did not exhibit any signs or symptoms of alcohol withdrawal. On postoperative day 1 the patient was doing well. Pain was well controlled, and patient was mobilizing well with therapy. Patient was determined be safe and ready for discharge to home. Total Time Total Time Spent Total Time Spent (In Minutes): 30 Discharge Plan Discharge Items Patient Disposition: Home - Self-Care Reason For Visit: LEFT PROXIMAL HUMERUS FRACTURE Discharge Diagnosis: Left shoulder severely displaced and severely comminuted proximal humerus fracture Activity: Per Instructions section Non-emergency contact: Surgeon Call non-emergency contact if: your pain is not controlled, your temperature is above 101.5, your wound has increased redness and your wound has increased drainage Follow-up/Referrals: Eros Kan [Primary Care Provider] - Lobito Marcano M.D. [Physician] - Diet: Regular Addtl Attending Provider Instructions: Things to Watch Out For -Nausea and sometimes vomiting is common side effect of anesthesia. Go easy with eating for the first day after your surgery. Drink non-carbonated fluids like Gatorade or water. Eat bland foods such as crackers. If these things go down easily, you may progress to more normal foods. -Go to the Emergency Room if you have sudden onset of chest pain, shortness of breath, or uncontrollable pain. -Call the clinic immediately if you have a sudden increase in the amount of wound drainage or the drainage becomes thick, yellow or green, or foul-smelling. -For routine questions, call the clinic at [phone] during regular business hours (8am-5pm). For urgent issues after regular business hours, you may call the clinic to be connected to the on-call physician. Dressings -A special waterproof, silver-impregnated dressing was placed on your shoulder. Keep this dressing in place for 1 week after surgery. You may shower with the waterproof dressing in place, but do not soak the dressing in the bathtub or pool. -One week after surgery, you may remove the waterproof dressing. You may continue to shower, and let water run BRIEFLY over the incision, but do not soak the incision in the bathtub or pool for 2 weeks. You may also gently clean the incision with mild soap and water; pat the incision dry after cleaning-do not rub the incision. Apply a new dressing daily thereafter. Shoulder Exercises -Keep your operative shoulder in the sling at all times, except as detailed below. -You should come out of the sling 4-5 times a day for passive pendulum exercises: lean over and swing your arm in a circular pattern. You may also do active-assisted forward flexion exercises: use your opposite hand to lift your operative arm forward to 90 degrees. -Do not push, pull, or lift any objects greater than 1 pound or bear any weight through your operative arm. Pain Medicines -Your prescriptions for pain medications have already been sent to the pharmacy from the hospital . -You have been prescribed a non-narcotic pain medicine (Tylenol/acetaminophen),Ibuprofen, and a narcotic pain medicine. (Oxycodone). Please take as instructed. -Do not drive or operate heavy machinery while taking the narcotic medication. -Common side effects of narcotic pain medicines include itching, nausea, constipation, and feeling "loopy". However, if you develop a rash or hives, stop taking the medicine and call the clinic. If you develop swelling in your throat or difficulty breathing, go to the Emergency Room or call 911 IMMEDIATELY. -You may take over the counter stool softeners if needed for constipation. Regional Nerve Blocks -If you were given a regional nerve block for your surgery, take a dose of pain medicine BEFORE the block wears off (either before you go to bed or when you FIRST start feeling sensation return). Do not wait; the block will wear off fairly abruptly and cause a significant increase in your pain level. -Nerve blocks usually wear off after about 12 hours, but they can last as long as 72 hours. Ice Cooling Sleeve -You may use an ice pack or cooling sleeve to reduce pain and inflammation. You should use it 20-30 minutes at a time for the first 1-[address] weeks [address] a towel between the sleeve and your skin to prevent frostbite. -About 2 weeks after your surgery, you should start using heat to loosen up your shoulder prior to doing your stretching exercises, then use the cooling sleeve after your exercises are complete to reduce swelling and pain. Pending Studies at Discharge: No Stand-Alone Forms: My [facility] [employer], Smoking Cessation Medications and DC Order Prescriptions: New aspirin,buffd-calcium carb-mag [Tri-Buffered Aspirin] 325 mg Tablet 325 mg PO DAILY 30 Days Qty: 30 0RF oxycodone 5 mg Tablet 5 - 10 mg PO Q6H PRN (Reason: pain) Qty: 24 0RF Rx Instructions: Take one or two tablets as needed for pain control. acetaminophen 500 mg capsule 1,000 mg PO Q8H 14 Days Qty: 84 0RF Continued losartan 25 mg PO HS amlodipine 5 mg PO HS rosuvastatin [Crestor] 10 mg PO HS nystatin-triamcinolone 100,000-0.1 unit/g-% cream 1 applic topical BID Qty: 30 4RF metformin 500 mg tablet 500 mg PO BID venlafaxine 75 mg capsule,extended release 24hr 75 mg PO QAM Rx Instructions: TAKE ONE 75 MG CAPSULE ALONG WITH ONE 150 MG CAPSULE TO EQUAL 225 MG DAILY DOSE venlafaxine 150 mg capsule,extended release 24hr 150 mg PO QAM Rx Instructions: TAKE ONE 150 MG CAPSULE ALONG WITH ONE 75 MG CAPSULE TO EQUAL 225 MG DAILY DOSE timolol maleate 0.25 % drops 1 drp OPB HS zolpidem 5 mg tablet 5 mg PO HS PRN (Reason: Sleep) [id number] oil-vit D3 [Fish Oil-Vit D3] 300-1,000-1,000 mg-mg-unit Capsule 2 cap PO QAM Discharge Orders: Discharge Order (Routine); Ordered 12/09/22 Ordered By: Gabriel Grimm Admission Data Admit Date/Time: 12/08/22 05:33 Attending Provider: Lobito Marcano Admit Provider: Lobito Marcano Primary Care Provider: Eros Kan Other Providers: Lobito Marcano ; Rizwan Pike ; Susy Greer ; Saeed Estrada ; Janes Pickard ; Harvey Phillips ; Agapito Ramirez ; José Manuel Hagan ; Gladys Mcduffie ; Zara Post ; Mauri Owusu ; Williams Narvaez ; Sobia Anthony ; Papito Palmer ; Marcel Cummins ; Esthela Waddell ; Bonnie Sarmiento ; Emmie Gutiérrez ; Hawk Yousif ; Frank Griffin ; Mariela Suarez ; Susy Salgado ; Cheyanne Paz ; Babar Zamora ; Saeed Zuñiga ; Sanjuana Vargas ; Allan Barry ; Jamie Campuzano ; Dahiana Hall ; Marcio Zuniga ; Eunice Massey ; Andrae Louise ; Taniya Beavers ; Apollo Schulte ; Meghan Abrams ; Yumiko Faulkner ; Julian Locke Other Interventions: Discharge Summary Assessment (RN) Last Done: 12/09/22 16:20
--- NOTE | 2022-12-18 13:58 | Coding Query ---
CODING QUERY To promote full compliance with coding requirements relating to patient care, provider participation is requested in all cases of fashion buyer uncertainty. Please assist us with the question(s) below: Coding Question(s): Pt admitted after a fall sustaining a severe displaced left proximal humeral fracture. The Operative report noted patient with osteoporosis . Seeking to clarify the association between the osteoporosis and the fracture. Please check below. Thank you . Fermin Uribe [facility] Physician's Response(s): ___X____ the humerus fracture was osteoporotic in nature the humerus fracture was not osteoporotic in nature Cannot clinically correlate if the humerus fracture was osteoporotic in nature Other: Please document: Principal Diagnosis: "that condition established after study, to be chiefly responsible for occasioning the admission of the patient to the hospital for care." Co-Existing Principal Diagnosis: "when two or more diagnoses equally meet the criteria for principal diagnosis as determined by the circumstances of admission, diagnostic work up, and/or therapy provided, and the Alphabetic Index, Tabular List, or another coding guideline does not provide sequencing direction, any one of the diagnoses may be sequenced first." "When the physician has documented what appears to be a current diagnosis in the body of the record, but has not included the diagnosis in the final diagnostic statement, the physician should be asked whether the diagnosis should be added." (Source Coding Clinic 2 QTR90. p3-4) BO
== END 2022-12-09 17:34 | disposition home or self-care (01) | DRG 493 ==
LOC: ED 04:29 → 3E 05:33